=== PATIENT | male | born 1950 | race Caucasian/White ===

== ENCOUNTER 2020-12-19 15:58 | Emergency (ER) | payer MEDICARE, MEDICAID ==
[~2020-12-19] VITALS: Ht 177.8 cm; Wt 74.8 kg
[~2020-12-19 15:58] MED LIST: ASPI-231 PO; ATO40T PO; CLOP75TA28 PO; GLIP5TAB12 PO; METF-370 PO
[2020-12-19 17:07] VITALS: BP 142/67
[2020-12-19] MEDS ORDERED: traMADol HCL 50 MG TAB PO ONE (17:30)
[2020-12-19] MEDS ORDERED: LIDOCAINE 1% HCL (LOCAL ANESTH.) INJ 20ML MDV IJ ONE (17:30)
== END 2020-12-19 19:12 | disposition left against medical advice (07) ==
LOC: ER 15:58
DX: S61.211A Laceration without foreign body of left index finger without damage to nail, initial encounter (principal); Z53.21 Procedure and treatment not carried out due to patient leaving prior to being seen by health care provider; X58.XXXA Exposure to other specified factors, initial encounter; Y93.89 Activity, other specified; Y92.89 Other specified places as the place of occurrence of the external cause; Y99.8 Other external cause status
CPT/HCPCS: 73140; J2001